=== PATIENT | female | born 1980 | race Two or more races ===

== ENCOUNTER 2018-06-29 19:14 | Emergency (ER) | payer OTHER ==
[~2018-06-29] VITALS: Ht 157.5 cm; Wt 65.8 kg
[2018-06-29] MEDS ORDERED: SYNTHROID75 MCG (20:25)
[2018-06-30] MEDS ORDERED: SKELAXIN800 MG PO (01:23)
[2018-06-30] MEDS ORDERED: SYNTHROID75 MCG PO (01:23)
[2018-06-30] MEDS ORDERED: CELEBREX200MG PO (01:23)
== END 2018-06-30 01:59 ==
LOC: ER 19:14
DX: M62.838 Other muscle spasm (principal)